=== PATIENT | female | born 1955 | race Caucasian/White ===

== ENCOUNTER 2017-05-12 09:37 | Day surgery (SDC) | payer BC ==
[~2017-05-12 09:37] MED LIST: ACETAMINOPHEN 1,000 MG/100 ML BTL IV ONE; CEFAZOLIN 2 Gram 2 GM/50 ML BAG IVPB ONE
[2017-05-12] MEDS ORDERED: SEVOFLURANE 250 ML INH ONE (09:38)
[2017-05-12] MEDS ORDERED: PROPOFOL 10 MG/ML VIAL IV ONE (09:38)
[2017-05-12] MEDS ORDERED: EPHEDRINE SULFATE 50 MG/ML ML IV ONE (09:38)
[2017-05-12] MEDS ORDERED: METHYLPREDNISOLONE 40MG/VIAL IM ONE (09:38)
[2017-05-12] MEDS ORDERED: KETOROLAC 30 MG/ML VIAL IVP ONE (09:38)
[2017-05-12] MEDS ORDERED: MIDAZOLAM HCL 2MG/2ML VIAL IV ONE (09:38)
[2017-05-12] MEDS ORDERED: HYDROCODONE/APAP 7.5/325MG TABLET PO ONE (09:38)
[2017-05-12] MEDS ORDERED: FENTANYL PF 100MCG/2ML VIAL IV ONE (09:38)
[2017-05-12] MEDS ORDERED: MORPHINE SULFATE 5 MG/ML PFS IVP ONE (09:38)
[2017-05-12] MEDS ORDERED: LIDOCAINE 2% MDV (20MG/ML) 20ML VIAL IV ONE (09:38)
[2017-05-12] MEDS ORDERED: ONDANSETRON HCL IV 4 MG/2 ML VIAL IVP ONE (09:38)
--- NOTE | 2017-05-12 14:53 | Operative Note ---
DATE: 05/12/17 PREOPERATIVE DIAGNOSIS: INTERNAL DERANGEMENT OF THE LEFT KNEE. POSTOPERATIVE DIAGNOSES: 1. 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 3. COMPLEX TEAR INVOLVING THE ANTERIOR AND POSTERIOR MEDIAL HORNS OF THE MEDIAL MENISCUS. 4. GRADE 3 CHONDROMALACIA MEDIAL FEMORAL CONDYLE. PROCEDURE: 1. LEFT KNEE ARTHROSCOPY WITH PARTIAL MEDIAL MENISCECTOMY. 2. LEFT KNEE ARTHROSCOPY WITH COMPLETE SYNOVECTOMY. 3. LEFT KNEE ARTHROSCOPY WITH DEBRIDEMENT AND CHONDROPLASTY OF THE MEDIOLATERAL AND PATELLA. STAFF SURGEON: MANNY NELSON M.D. ANESTHESIA: GENERAL. PREPARATION: CHLORAPREP. INDIVIDUAL CONSIDERATIONS: NONE. PROCEDURE: The patient was taken to the Operating Room and placed supine on the operating table. She had a successful induction of a general anesthetic. Her left lower extremity was prepped and draped in the usual fashion. The patient had superolateral inflow cannula placed. The skin was infiltrated with 0.50% Marcaine with Epinephrine prior. A large clear effusion was drained and the knee was inflated with normal saline. An inferior medial and inferior lateral portal were made in a similar fashion. The arthroscope was introduced through the inferior lateral portal up in the pouch. The patellofemoral compartment showed grade 3 changes superiorly on the patella, which was smoothed with a shaver. The notch looked good. Diffuse synovitis was seen in the pouch and both gutters. This was debrided out with a shaver. No loose bodies were seen. Medially, she had a chondral lesion in the medial femoral condyle centered at about 45 degrees just lateral to the midline, about the size of a quarter luckily not down to the bone but it was peeling and this was smoothed with a shaver. She had a large anterior flap tear of the anterior horn of the medial meniscus and another flap posteromedially. This was debrided back to stable rim with basket forceps and a shaver. The tibial plateau has soft change but nothing to debride. In the notch, the cruciates were normal and the lateral compartment structures were normal. The knee was then irrigated out with saline to remove floating debris. The portals were closed with martinez and 20 mL of 0.25 %Marcaine with Epinephrine along with 4 mg of Morphine and 40 mg DepoMedrol were injected into the knee and a sterile Bulkee compressive dressing was applied. The patient tolerated the procedures well. Needle and sponge counts were correct. Estimated blood loss was minimal and she was taken back to Recovery in good condition. There were no complications. cc: Dr. Donnie Del Real JOB NUMBER: [id number] MTDD
== END 2017-05-12 13:15 | disposition home or self-care (01) ==
LOC: SUR 09:37
PROVIDERS: ATTEND Orthopaedic Surgery
DX: M23.222 Derangement of posterior horn of medial meniscus due to old tear or injury, left knee (principal); M23.212 Derangement of anterior horn of medial meniscus due to old tear or injury, left knee; M22.42 Chondromalacia patellae, left knee; E03.9 Hypothyroidism, unspecified; M65.9 Synovitis and tenosynovitis, unspecified
CPT/HCPCS: 29881; 29876; 01400; J1885; J2405; J3010; J0690; J2270; J1030